=== PATIENT | female | born 1995 | race African-American/Black ===

== ENCOUNTER 2016-09-29 20:21 | Emergency (ER) | payer SELFPAY ==
[~2016-09-29] VITALS: Ht 162.6 cm; Wt 87.4 kg
[~2016-09-29 20:21] MED LIST: BACTRIM DS1 TAB OR; BENADRYL 50MG C50 MG OR; CIPRO500 MG OR; DOXYCYC MONO100 MG OR; NAPROSYN500 MG OR; NO HOME MEDS
[2016-09-29 21:28] LABS: URINE BILIRUBIN - DIPSTICK NEGATIVE (NEGATIVE); URINE BLOOD DIPSTICK TRACE-INTACT (NEGATIVE); URINE CLARITY CLEAR; URINE COLOR YELLOW; URINE GLUCOSE - DIPSTICK NEGATIVE (NEGATIVE); URINE KETONE NEGATIVE (NEGATIVE); URINE LEUK ESTERASE NEGATIVE (NEGATIVE); URINE NITRITE - DIPSTICK NEGATIVE (Negative); URINE PROTEIN - DIPSTICK 30 mg/dL (NEG-TRACE); URINE SPECIFIC GRAVITY 1.025; URINE UROBILINOGEN - DIPSTICK 0.2 E.U./dL (0.2)
[2016-09-29 21:29] LABS: HEMATOCRIT 28.3 % (37.0-47.0); HEMOGLOBIN 10.2 g/dl (12.0-16.0); IMMATURE GRANULOCYTES 0.2 % (0.0-1.0); MEAN CELL VOLUME 72.9 fL CALC (80.0-100.0); MEAN CORPUSCULAR HGB 26.3 pG CALC (26.0-32.0); NEUT# 5.67 thou/uL (2.00-7.15); RED BLOOD COUNT 3.88 mill/uL (4.20-5.60); RED CELL DISTRI WIDTH 15.4 % (11.5-15.5)
[2016-09-29 21:36] LABS: URINE SQUAMOUS EPITHELIAL CELL FEW EPI/hpf (0-FEW)
[2016-09-29 21:39] LABS: ALBUMIN 4.7 g/dL (3.2-5.0); ALKALINE PHOSPHATASE 70 u/l (38-126); AMYLASE 69 u/l (30-110); ANION GAP 16 (6-22 (CALC)); BILIRUBIN, TOTAL 0.5 mg/dL (0.0-1.4); BUN 8 mg/dL (7-17); BUN/CREATININE RATIO 12 (12-20 (CALC)); CALCIUM 9.9 mg/dL (8.4-10.2); CARBON DIOXIDE 25 mmol/l (22-30); CHLORIDE 104 mmol/l (95-108); CREATININE 0.7 mg/dL (0.5-1.0); GFR > 60 ML/MIN (>=60 (CALC)); GFR FOR AFR.AMER. > 60 ML/MIN (>=60 (CALC)); GLUCOSE 80 mg/dL (65-105); LIPASE 97 u/l (23-300); SGOT/AST 32 u/l (14-36); SGPT/ALT 38 u/l (9-52); SODIUM 141 mmol/l (137-146); TOTAL PROTEIN 7.9 g/dL (6.3-8.2)
[2016-09-29 22:53] VITALS: BP 124/84
== END 2016-09-29 22:53 | disposition home or self-care (01) | DRG 918 ==
LOC: ED 20:21
PROVIDERS: Emergency Medicine
DX: T54.91XA Toxic effect of unspecified corrosive substance, accidental (unintentional), initial encounter (principal); F17.210 Nicotine dependence, cigarettes, uncomplicated; R10.12 Left upper quadrant pain; R10.11 Right upper quadrant pain; R11.2 Nausea with vomiting, unspecified; R19.7 Diarrhea, unspecified
CPT/HCPCS: S0164

== ENCOUNTER 2016-10-21 10:31 | Emergency (ER) | payer MEDICAID ==
[~2016-10-21] VITALS: Ht 162.6 cm; Wt 70.0 kg
[2016-10-21 11:11] LABS: URINE BILIRUBIN - DIPSTICK NEGATIVE (NEGATIVE); URINE BLOOD DIPSTICK NEGATIVE (NEGATIVE); URINE CLARITY CLEAR; URINE COLOR YELLOW; URINE GLUCOSE - DIPSTICK NEGATIVE (NEGATIVE); URINE KETONE NEGATIVE (NEGATIVE); URINE LEUK ESTERASE NEGATIVE (NEGATIVE); URINE NITRITE - DIPSTICK NEGATIVE (Negative); URINE PH 6.5 (4.5-8.0); URINE PROTEIN - DIPSTICK NEGATIVE (NEG-TRACE); URINE SPECIFIC GRAVITY 1.015; URINE UROBILINOGEN - DIPSTICK 0.2 E.U./dL (0.2)
[2016-10-21 11:26] LABS: ALBUMIN 4.4 g/dL (3.2-5.0); ALKALINE PHOSPHATASE 81 u/l (38-126); ANION GAP 17 (6-22 (CALC)); BILIRUBIN, TOTAL 0.5 mg/dL (0.0-1.4); BUN 10 mg/dL (7-17); BUN/CREATININE RATIO 16 (12-20 (CALC)); CALCIUM 9.4 mg/dL (8.4-10.2); CARBON DIOXIDE 21 mmol/l (22-30); CHLORIDE 107 mmol/l (95-108); CREATININE 0.6 mg/dL (0.5-1.0); GFR > 60 ML/MIN (>=60 (CALC)); GFR FOR AFR.AMER. > 60 ML/MIN (>=60 (CALC)); GLUCOSE 87 mg/dL (65-105); LIPASE 95 u/l (23-300); POTASSIUM 4.1 mmol/l (3.5-5.1); SGOT/AST 21 u/l (14-36); SGPT/ALT 30 u/l (9-52); SODIUM 140 mmol/l (137-146); TOTAL PROTEIN 7.9 g/dL (6.3-8.2)
[2016-10-21 11:45] LABS: HEMATOCRIT 29.5 % (37.0-47.0); HEMOGLOBIN 10.6 g/dl (12.0-16.0); IMMATURE GRANULOCYTES 0.1 % (0.0-1.0); MEAN CELL VOLUME 73.2 fL CALC (80.0-100.0); MEAN CORPUSCULAR HGB 26.3 pG CALC (26.0-32.0); MEAN CORPUSCULAR HGB CONC 35.9 g/L CALC (32.0-36.0); NEUT# 4.57 thou/uL (2.00-7.15); RED BLOOD COUNT 4.03 mill/uL (4.20-5.60); RED CELL DISTRI WIDTH 15.3 % (11.5-15.5)
[2016-10-21] MEDS ORDERED: ZOFRAN ODT4 MG PO (13:21)
[2016-10-21] MEDS ORDERED: TRAMADOL HYDROC50 MG PO (13:21)
[2016-10-21 13:25] VITALS: BP 116/74
== END 2016-10-21 13:25 | disposition home or self-care (01) | DRG 761 ==
LOC: ED 10:31
PROVIDERS: Emergency Medicine
DX: N83.201 Unspecified ovarian cyst, right side (principal); R11.2 Nausea with vomiting, unspecified

== ENCOUNTER 2016-11-16 18:06 | Emergency (ER) | payer MEDICAID ==
[~2016-11-16] VITALS: Ht 162.6 cm; Wt 90.0 kg
[~2016-11-16 18:06] MED LIST changes: +TRAMADOL HYDROC50 MG PO; +ZOFRAN ODT4 MG PO
[2016-11-16] MEDS ORDERED: ULTRAM50 M1 PO (18:58)
[2016-11-16] MEDS ORDERED: AMOXICILLIN500 MG PO (18:58)
[2016-11-16 19:08] VITALS: BP 122/77
== END 2016-11-16 19:08 | disposition home or self-care (01) | DRG 159 ==
LOC: ED 18:06
DX: K04.7 Periapical abscess without sinus (principal); J02.0 Streptococcal pharyngitis; K08.89 Other specified disorders of teeth and supporting structures

== ENCOUNTER 2016-11-16 22:47 | Emergency (ER) | payer MEDICAID ==
[~2016-11-16] VITALS: Ht 162.6 cm; Wt 89.8 kg
[~2016-11-16 22:47] MED LIST changes: +AMOXICILLIN500 MG PO; +ULTRAM50 M1 PO
[2016-11-17 00:08] LABS: URINE BILIRUBIN - DIPSTICK NEGATIVE (NEGATIVE); URINE BLOOD DIPSTICK NEGATIVE (NEGATIVE); URINE CLARITY CLOUDY; URINE COLOR YELLOW; URINE GLUCOSE - DIPSTICK NEGATIVE (NEGATIVE); URINE KETONE NEGATIVE (NEGATIVE); URINE LEUK ESTERASE NEGATIVE (NEGATIVE); URINE NITRITE - DIPSTICK NEGATIVE (Negative); URINE PROTEIN - DIPSTICK NEGATIVE (NEG-TRACE); URINE SPECIFIC GRAVITY >=1.030; URINE UROBILINOGEN - DIPSTICK 0.2 E.U./dL (0.2)
[2016-11-17 00:14] LABS: BARBITURATES NEGATIVE (NEGATIVE); COCAINE NEGATIVE (NEGATIVE); METHADONE NEGATIVE (NEGATIVE); OXCYCODONE NEGATIVE (NEGATIVE); TETRAHYDROCANNABIONOL POSITIVE (NEGATIVE); TRICYLIC ANTIDEPRESSANTS NEGATIVE (NEGATIVE)
[2016-11-17 01:05] VITALS: BP 120/77
== END 2016-11-17 01:05 | disposition home or self-care (01) | DRG 153 ==
LOC: ED 22:47
PROVIDERS: Emergency Medicine
DX: J02.0 Streptococcal pharyngitis (principal)

== ENCOUNTER 2017-02-02 00:08 | Emergency (ER) | payer MEDICAID ==
[~2017-02-02] VITALS: Ht 162.6 cm; Wt 95.4 kg
[2017-02-02 01:02] VITALS: BP 124/83
[2017-02-02] MEDS ORDERED: AMOXICILLIN500 MG PO (01:02)
[2017-02-02] MEDS ORDERED: PERCOCET 5/325M1 TAB PO (01:02)
== END 2017-02-02 01:02 | disposition home or self-care (01) | DRG 159 ==
LOC: ED 00:08
DX: K04.7 Periapical abscess without sinus (principal); K08.89 Other specified disorders of teeth and supporting structures; K02.9 Dental caries, unspecified; K05.10 Chronic gingivitis, plaque induced; F17.210 Nicotine dependence, cigarettes, uncomplicated

== ENCOUNTER 2017-02-21 16:43 | Emergency (ER) | payer MEDICAID ==
[~2017-02-21] VITALS: Ht 162.6 cm; Wt 85.0 kg
[~2017-02-21 16:43] MED LIST changes: +PERCOCET 5/325M1 TAB PO
[2017-02-21 17:12] LABS: HEMATOCRIT 28.7 % (37.0-47.0); HEMOGLOBIN 10.2 g/dl (12.0-16.0); IMMATURE GRANULOCYTES 0.2 % (0.0-1.0); MEAN CELL VOLUME 73.6 fL CALC (80.0-100.0); MEAN CORPUSCULAR HGB 26.2 pG CALC (26.0-32.0); MEAN CORPUSCULAR HGB CONC 35.5 g/L CALC (32.0-36.0); NEUT# 5.97 thou/uL (2.00-7.15); RED BLOOD COUNT 3.9 mill/uL (4.20-5.60); RED CELL DISTRI WIDTH 15.4 % (11.5-15.5)
[2017-02-21 17:28] LABS: URINE BILIRUBIN - DIPSTICK NEGATIVE (NEGATIVE); URINE BLOOD DIPSTICK NEGATIVE (NEGATIVE); URINE COLOR YELLOW; URINE GLUCOSE - DIPSTICK NEGATIVE (NEGATIVE); URINE KETONE NEGATIVE (NEGATIVE); URINE LEUK ESTERASE NEGATIVE (NEGATIVE); URINE NITRITE - DIPSTICK NEGATIVE (Negative); URINE PH 5.5 (4.5-8.0); URINE PROTEIN - DIPSTICK NEGATIVE (NEG-TRACE); URINE SPECIFIC GRAVITY 1.025; URINE UROBILINOGEN - DIPSTICK 0.2 E.U./dL (0.2)
[2017-02-21 17:29] LABS: URINE CLARITY CLEAR
[2017-02-21 17:38] LABS: BARBITURATES NEGATIVE (NEGATIVE); COCAINE POSITIVE (NEGATIVE); METHADONE NEGATIVE (NEGATIVE); OXCYCODONE NEGATIVE (NEGATIVE); TETRAHYDROCANNABIONOL POSITIVE (NEGATIVE); TRICYLIC ANTIDEPRESSANTS NEGATIVE (NEGATIVE)
[2017-02-21 18:02] LABS: ALBUMIN 4.6 g/dL (3.2-5.0); ALKALINE PHOSPHATASE 100 u/l (38-126); ANION GAP 16 (6-22 (CALC)); BILIRUBIN, TOTAL 0.2 mg/dL (0.0-1.4); BUN 11 mg/dL (7-17); BUN/CREATININE RATIO 16 (12-20 (CALC)); CARBON DIOXIDE 24 mmol/l (22-30); CHLORIDE 109 mmol/l (95-108); CREATININE 0.7 mg/dL (0.5-1.0); GFR > 60 ML/MIN (>=60 (CALC)); GFR FOR AFR.AMER. > 60 ML/MIN (>=60 (CALC)); GLUCOSE 103 mg/dL (65-105); POTASSIUM 3.5 mmol/l (3.5-5.1); SGOT/AST 59 u/l (14-36); SGPT/ALT 19 u/l (9-52); SODIUM 145 mmol/l (137-146); TOTAL PROTEIN 8.2 g/dL (6.3-8.2)
[2017-02-21 18:03] LABS: ETHYL ALCOHOL 0 mg/dl (0-30)
[2017-02-21] MEDS ORDERED: RISPERIDONE2 MG PO (18:10)
[2017-02-21 18:31] VITALS: BP 108/54
== END 2017-02-21 18:30 | disposition short-term general hospital (02) | DRG 880 ==
LOC: ED 16:43
PROVIDERS: Emergency Medicine
DX: R45.851 Suicidal ideations (principal); R44.0 Auditory hallucinations

== ENCOUNTER 2017-02-26 23:02 | Emergency (ER) | payer MEDICAID ==
[~2017-02-26 23:02] MED LIST changes: +RISPERIDONE2 MG PO
== END 2017-02-26 23:27 | disposition left against medical advice (07) | DRG 951 ==
LOC: ED 23:02 → LWOBS 23:27
DX: Z91.19 Patient's noncompliance with other medical treatment and regimen (principal)

== ENCOUNTER 2017-02-28 12:12 | Emergency (ER) | payer MEDICAID ==
[~2017-02-28] VITALS: Ht 162.6 cm; Wt 95.4 kg
[2017-02-28 12:40] LABS: HEMATOCRIT 31.9 % (37.0-47.0); HEMOGLOBIN 11.4 g/dl (12.0-16.0); IMMATURE GRANULOCYTES 0.3 % (0.0-1.0); MEAN CELL VOLUME 72.8 fL CALC (80.0-100.0); MEAN CORPUSCULAR HGB CONC 35.7 g/L CALC (32.0-36.0); NEUT# 4.23 thou/uL (2.00-7.15); RED BLOOD COUNT 4.38 mill/uL (4.20-5.60); RED CELL DISTRI WIDTH 15.2 % (11.5-15.5)
[2017-02-28 12:52] LABS: ANION GAP 15 (6-22 (CALC)); BUN 9 mg/dL (7-17); BUN/CREATININE RATIO 13 (12-20 (CALC)); CALCIUM 10.1 mg/dL (8.4-10.2); CARBON DIOXIDE 22 mmol/l (22-30); CHLORIDE 107 mmol/l (95-108); CREATININE 0.7 mg/dL (0.5-1.0); GFR > 60 ML/MIN (>=60 (CALC)); GFR FOR AFR.AMER. > 60 ML/MIN (>=60 (CALC)); GLUCOSE 100 mg/dL (65-105); POTASSIUM 3.8 mmol/l (3.5-5.1); SODIUM 140 mmol/l (137-146)
[2017-02-28] MEDS ORDERED: PREDNISONE50 MG PO (13:45)
[2017-02-28] MEDS ORDERED: ZPAK PO (13:45)
[2017-02-28 13:53] VITALS: BP 126/60
== END 2017-02-28 14:04 | disposition left against medical advice (07) | DRG 313 ==
LOC: ED 12:12
PROVIDERS: Family Medicine
DX: R07.9 Chest pain, unspecified (principal); R42 Dizziness and giddiness; F20.9 Schizophrenia, unspecified; F17.210 Nicotine dependence, cigarettes, uncomplicated; Z91.19 Patient's noncompliance with other medical treatment and regimen

== ENCOUNTER 2017-03-04 18:25 | Emergency (ER) | payer MEDICAID ==
[~2017-03-04] VITALS: Ht 162.6 cm; Wt 60.0 kg
[~2017-03-04 18:25] MED LIST changes: +PREDNISONE50 MG PO; +ZPAK PO
[2017-03-04] MEDS ORDERED: RISPERDAL2 MG PO (18:31)
[2017-03-04] MEDS ORDERED: TRAZODONE50 MG PO (18:31)
[2017-03-04] MEDS ORDERED: VISTARIL25 MG PO (18:32)
[2017-03-04] MEDS ORDERED: AMOXICILLIN500 MG PO (18:58)
[2017-03-04] MEDS ORDERED: NAPROSYN500 MG PO (18:58)
[2017-03-04 19:08] VITALS: BP 136/84
== END 2017-03-04 19:30 | disposition home or self-care (01) | DRG 159 ==
LOC: ED 18:25
DX: K08.89 Other specified disorders of teeth and supporting structures (principal); K04.7 Periapical abscess without sinus

== ENCOUNTER 2020-06-11 22:09 | Emergency (ER) | payer MEDICARE, OTHER ==
[~2020-06-11 22:09] MED LIST changes: +NAPROSYN500 MG PO; +RISPERDAL2 MG PO; +TRAZODONE50 MG PO; +VISTARIL25 MG PO
[2020-06-11] MEDS ORDERED: ANTIBIOTIC PO (22:38)
[2020-06-11] MEDS ORDERED: PSYCH MED PO (22:38)
[2020-06-11] MEDS ORDERED: VENTOLIN H108 MCG/AC PO (23:59)
[2020-06-12 00:04] VITALS: BP 119/75
== END 2020-06-12 05:42 | disposition home or self-care (01) ==
LOC: ED 22:09
DX: U07.1 COVID-19 (principal); R07.89 Other chest pain; F17.200 Nicotine dependence, unspecified, uncomplicated

== ENCOUNTER 2020-06-20 17:24 | Emergency (ER) | payer MEDICARE, OTHER ==
[~2020-06-20 17:24] MED LIST changes: +ANTIBIOTIC PO; +PSYCH MED PO; +VENTOLIN H108 MCG/AC PO
[2020-06-20] MEDS ORDERED: ATIVAN1 MG PO (18:51)
[2020-06-20 19:21] VITALS: BP 111/61
== END 2020-06-20 19:21 | disposition home or self-care (01) ==
LOC: ED 17:24
DX: Z09 Encounter for follow-up examination after completed treatment for conditions other than malignant neoplasm (principal); F17.200 Nicotine dependence, unspecified, uncomplicated; F41.9 Anxiety disorder, unspecified; Z86.16 Personal history of COVID-19

== ENCOUNTER 2020-06-23 01:18 | Emergency (ER) | payer MEDICARE, OTHER ==
[~2020-06-23 01:18] MED LIST changes: +ATIVAN1 MG PO
[2020-06-23 02:06] LABS: HEMATOCRIT 32.6 % (37.0-47.0); HEMOGLOBIN 11.6 g/dl (12.0-16.0); IMMATURE GRANULOCYTES 0.2 % (0.0-5.0); MEAN CELL VOLUME 76.2 fL CALC (80.0-100.0); MEAN CORPUSCULAR HGB 27.1 pG CALC (26.0-32.0); MEAN CORPUSCULAR HGB CONC 35.6 g/dL CAL (32.0-36.0); NEUT# 4.86 thou/uL (2.00-7.15); RED BLOOD COUNT 4.28 mill/uL (4.20-5.60); RED CELL DISTRI WIDTH 14.7 % (11.5-15.5)
[2020-06-23 02:17] LABS: URINE BILIRUBIN - DIPSTICK NEGATIVE (NEGATIVE); URINE COLOR YELLOW; URINE GLUCOSE - DIPSTICK NEGATIVE (NEGATIVE); URINE KETONE NEGATIVE (NEGATIVE); URINE LEUK ESTERASE NEGATIVE (NEGATIVE); URINE PH 7.5 (4.5-8.0); URINE PROTEIN - DIPSTICK NEGATIVE (NEG-TRACE); URINE SPECIFIC GRAVITY 1.015; URINE UROBILINOGEN - DIPSTICK 0.2 E.U./dL (0.2)
[2020-06-23 02:20] LABS: URINE BLOOD DIPSTICK NEGATIVEA (NEGATIVE); URINE NITRITE - DIPSTICK NEGATIVE (Negative)
[2020-06-23 02:37] LABS: ALBUMIN 4.6 g/dL (3.2-5.0); ALKALINE PHOSPHATASE 77 u/l (38-126); AMYLASE 86 u/l (30-110); ANION GAP 14 (6-22 (CALC)); BUN 12 mg/dL (7-17); BUN/CREATININE RATIO 19 (12-20 (CALC)); CARBON DIOXIDE 25 mmol/l (22-30); CHLORIDE 102 mmol/l (95-108); CREATININE 0.7 mg/dL (0.5-1.0); GFR > 60 ML/MIN (>=60 (CALC)); GFR FOR AFR.AMER. > 60 ML/MIN (>=60 (CALC)); LIPASE 154 u/l (23-300); POTASSIUM 4.3 mmol/l (3.5-5.1); SGOT/AST 25 u/l (14-36); SODIUM 137 mmol/l (137-146); TOTAL PROTEIN 8.5 g/dL (6.3-8.2)
[2020-06-23 02:39] LABS: BILIRUBIN, TOTAL 0.5 mg/dL (0.0-1.4)
[2020-06-23] MEDS ORDERED: VOLTAREN - GENE75 MG PO (03:23)
[2020-06-23 03:42] VITALS: BP 112/63
== END 2020-06-23 03:43 | disposition home or self-care (01) ==
LOC: ED 01:18
PROVIDERS: Family Medicine
DX: R10.2 Pelvic and perineal pain (principal); F17.210 Nicotine dependence, cigarettes, uncomplicated
CPT/HCPCS: Q9967